=== PATIENT | female | born 1975 | race Caucasian/White ===

== ENCOUNTER 2017-03-17 15:52 | Emergency (ER) | payer MEDICAID, OTHER ==
[~2017-03-17] VITALS: Ht 157.5 cm; Wt 52.0 kg
[~2017-03-17 15:52] MED LIST: VALA100057 PO
[2017-03-17 15:56] VITALS: Ht 157.5 cm; Wt 52.0 kg
[2017-03-17] MEDS ORDERED: KETOROLAC 30 MG INJ IM STA (16:36)
[2017-03-17] MEDS ORDERED: DIAZEPAM 5 MG TAB PO ONE (17:00)
[2017-03-17 17:22] LABS: ADD UMIC YES; UR ASCORBIC ACID NEGATIVE (NEGATIVE); UR BACTERIA FEW /HPF (NONE SEEN); UR BILIRUBIN (Dip) NEGATIVE (NEGATIVE); UR BLOOD (Dip) 2+ mg/dL (NEGATIVE); UR CLARITY CLOUDY (CLEAR); UR COLOR YELLOW (YELLOW); UR GLUCOSE (Dip) NEGATIVE (NEGATIVE); UR KETONES (Dip) 2+ mg/dL (NEGATIVE); UR LEUKOCYTE ESTERASE (Dip) NEGATIVE Leu/ul (NEGATIVE); UR MUCUS FEW /HPF (NONE SEEN); UR NITRITE (Dip) NEGATIVE (NEGATIVE); UR RBC 9 /HPF (0-5); UR SQUAMOUS EPITHELIAL CELL FEW /HPF (FEW); UR TOTAL PROTEIN (Dip) NEGATIVE (NEGATIVE); UR UROBILINOGEN (Dip) NEGATIVE (NEGATIVE)
--- NOTE | 2017-03-17 17:25 | ERD ---
ER Documentation Chief Complaint Date/Time DATE: 03/17/17 TIME: 17:20 Chief Complaint MENSTRUAL CRAMS WITH VOMITING HPI This 42-year-old female presents to emergency department today for evaluation of dysmenorrhea, with vomiting, dysuria. Patient reports dark menses, started 5 days ago. Patient reports that she has painful menstruation always on the left side. Patient denies possibility of reports tubal ligation. Denies diarrhea, denies localized abdominal pain and epigastric, upper, or right lower quadrant. ROS All systems reviewed and are negative except as per history of present illness. Medications Home Meds Active Scripts Valacyclovir Hcl* (Valtrex*) 1,000 Mg Tablet, 2000 MG PO BID for 2 Days, TAB this is to be used at first sign of outbreak in the future. Do not use in the period you are breast feeding Prov:CUBA MEJIAS PA-C 03/08/15 Allergies Allergies: Coded Allergies: No Known Allergy (Verified , 08/08/14) PMhx/Soc History of Surgery: Yes () Anesthesia Reaction: No Hx Neurological Disorder: No Hx Respiratory Disorders: No Hx Cardiac Disorders: No Hx Psychiatric Problems: No Hx Miscellaneous Medical Probl: No Hx Alcohol Use: No Hx Substance Use: No Hx Tobacco Use: No Smoking Status: Never smoker Physical Exam Vitals Vital Signs Date Time Temp Pulse Resp B/P Pulse Ox O2 Delivery O2 Flow Rate FiO2 03/17/17 15:56 98.3 66 18 126/77 100 Vitals stable, triage notes reviewed Physical Exam Const: Well-appearing, well-hydrated, in no acute distress in obvious discomfort Head: Atraumatic Eyes: Normal Conjunctiva, PERRLA, EOMI ENT: Normal External Ears, Nose and Mouth, mucous membranes moist. Neck: Resp: Respirations even and unlabored, no respiratory distress Cardio: Abd: Abdomen soft, no epigastric tenderness, negative Alamo sign, no McBurney's point tenderness, no CVA tenderness, patient has reproducible pelvic and bladder tenderness Skin: Back: No midline or flank tenderness Ext: Neur: Awake and alert Psych: Normal Mood and Affect Results 24 hrs Laboratory Tests Test 03/17/17 16:47 Urine Color YELLOW Urine Clarity CLOUDY Urine pH 8.0 Urine Specific [place] 1.020 Urine Ketones 2+mg/dL Urine Nitrite NEGATIVEmg/dL Urine Bilirubin NEGATIVEmg/dL Urine Urobilinogen NEGATIVEmg/dL Urine Leukocyte Esterase NEGATIVELeu/ul Urine Microscopic RBC 9/HPF Urine Microscopic WBC 2/HPF Urine Squamous Epithelial Cells FEW/HPF Urine Bacteria FEW/HPF Urine Mucus FEW/HPF Urine Hemoglobin 2+mg/dL Urine Glucose NEGATIVEmg/dL Urine Total Protein NEGATIVEmg/dl Current Medications Medications (Trade) Dose Ordered Sig/Jelly Route PRN Reason Start Time Stop Time Status Last Admin Dose Admin Ketorolac Tromethamine (Toradol) 30 mg ONCE STAT IM 03/17/17 16:36 03/17/17 16:39 DC 03/17/17 16:51 Diazepam (Valium) 5 mg ONCE ONCE PO 03/17/17 17:00 03/17/17 17:18 DC 03/17/17 16:50 Procedures/MDM PROCEDURE: US Pelvis. CLINICAL INDICATION: Left pelvic pain TECHNIQUE: Multiple sonographic images of the pelvis were obtained utilizing a transabdominal and endovaginal technique. The images were reviewed on a PACS workstation. COMPARISON: 11/11/2012 FINDINGS: The uterus is visualized and measures 9.6 x 5.1 x 4.9 cm in size. The uterus is heterogeneous in echogenicity. A small hypoechoic structure in the uterus is seen measuring 1.3 x 0.7 x 1.1 cm in size. The endometrial echo complex is normal and measures 3.6 mm. There is no evidence for free fluid. The right ovary is not well visualized. A simple left ovarian cyst is seen measuring 2.8 x 2 x 2.7 cm in size and may represent a dominant follicle. The remainder of the left ovary has a normal echotexture and measures 3.6 x 2.3 x 3.5 cm. No adnexal masses are noted. IMPRESSION: 1. Left ovarian simple cyst which may represent a dominant follicle. 2. Heterogeneous uterus with a probable small leiomyoma. Electronically viewed and signed by Physician Enzo on 03/17/2017 17 :36 This 42-year-old female presents to emergency department today for evaluation of abdominal pain heavy menstruation with dark menses. Symptoms 5 days. is not suspected status post tubal ligation with her last childbirth. Little suspicion for ectopic , ovarian torsion, pelvic inflammatory disease, or appendicitis. Patient's history suggest a ovarian cyst or uterine fibroids, patient receives Toradol intramuscularly for pain, ultrasound findings as follows: Left ovarian simple cysts which may represent a dominant follicle, heterogeneous uterus with a probable small leiomyoma. Patient will be discharged with Naprosyn 500 mg 1 tab p.o. twice daily 10 days as needed, [place] count of 5 for pain greater than 6/10 on pain scale. Patient to follow- up with gynecology for well woman evaluation and treatment of ovarian cyst and uterine fibroid. I feel the patient is stable for discharge at this time. I have discussed results, examination findings, the treatment plan with the patient and family present prior to discharge. Indications for emergent reevaluation, side effects of medication were also discussed. All questions were answered. Patient verbalizes understanding and agrees with plan of care. Departure Diagnosis: Primary Impression: Ovarian cyst Laterality: left Qualified Code: N83.202 - Cyst of left ovary Additional Impression: Uterine fibroid Uterine leiomyoma location: unspecified location Qualified Code: D25.9 - Uterine leiomyoma, unspecified location Condition: Good Patient Instructions: Ovarian Cyst, Uterine Fibroids Referrals: [facility] REFERRAL LIST Additional Instructions: Thank you for for coming to [facility] for your care today. Please ask your nurse or provider if you have questions about your care today and do not leave until all your questions have been answered. Please use any medications given as directed and follow-up with your doctor (or the doctor you were referred to) in the next 2-3 days. If you do not have a primary care doctor you may follow up at the [facility] [place] (listed below). You may also use motrin and tylenol as needed for fever and/or pain unless instructed otherwise by your provider or nurse. Indications for more urgent follow-up have been discussed, but you may return to the Emergency Department at ANY time for any worrisome or worsening symptoms. If you have abdominal pain, please know that no test or exam you received is perfect and you should follow up within 8 hours for continued pain. If you had any imaging studies today, such as an X-Ray or CT Scan, these studies will be reviewed later by a radiologist. You will be called if there are important findings that were not identified today, so make sure the contact information you provided at registration is correct. If you received any narcotic pain control medicine today, such as Vicodin, Morphine or Dilaudid, your coordination and judgment may be affected for a number of hours. Please do not drive or operate heavy machinery, and you may want someone to assist you at home. If you were given a prescription for narcotic medication, be aware that it is very addictive- use sparingly and only if necessary. ALTHEA PAZ Mar 17, 2017 17:25
--- NOTE | 2017-03-17 17:36 | RADRPT ---
PROCEDURE: US Pelvis. CLINICAL INDICATION: Left pelvic pain TECHNIQUE: Multiple sonographic images of the pelvis were obtained utilizing a transabdominal and endovaginal technique. The images were reviewed on a PACS workstation. COMPARISON: 11/11/2012 FINDINGS: The uterus is visualized and measures 9.6 x 5.1 x 4.9 cm in size. The uterus is heterogeneous in ech ogenicity. A small hypoechoic structure in the uterus is seen measuring 1.3 x 0.7 x 1.1 cm in size. The endometrial echo complex is normal and measures 3.6 mm. There is no evidence for free fluid. Th e right ovary is not well visualized. A simple left ovarian cyst is seen measuring 2.8 x 2 x 2.7 cm in size and may represent a dominant follicle. The remainder of the left ovary has a normal echotex ture and measures 3.6 x 2.3 x 3.5 cm. No adnexal masses are noted. IMPRESSION: 1. Left ovarian simple cyst which may represent a dominant follicle. 2. Heterogeneous uterus with a probable small leiomyoma. RPTAT: HPNM Physician Enzo Date Time Electronically viewed and signed by Physician Enzo on 03/17/2017 17:36 /
[2017-03-17] MEDS ORDERED: NAPR-260 PO (17:53)
[2017-03-17] MEDS ORDERED: HYDR-906 PO (17:54)
[2017-03-17 18:14] VITALS: BP 107/64; PULSE 63; RESP 16; TEMP 98.3
== END 2017-03-17 18:15 | disposition home or self-care (01) ==
LOC: FTE 15:52
DX: N83.202 Unspecified ovarian cyst, left side (principal); D25.9 Leiomyoma of uterus, unspecified; R10.2 Pelvic and perineal pain
CPT/HCPCS: 76830; 76856; 81001; 96372; J1885; Z7502; Z7610

== ENCOUNTER 2017-04-30 11:22 | Emergency (ER) | payer OTHER ==
[~2017-04-30] VITALS: Ht 152.4 cm; Wt 52.5 kg
[~2017-04-30 11:22] MED LIST changes: +HYDR-906 PO; +NAPR-260 PO
[2017-04-30 11:32] VITALS: Ht 152.4 cm; Wt 52.5 kg
[2017-04-30] MEDS ORDERED: ONDANSETRON 4 MG INJ IV STA (12:20)
[2017-04-30] MEDS ORDERED: MECLIZINE 12.5 MG TAB PO ONE (12:30)
[2017-04-30] MEDS ORDERED: SOD CHLORIDE 0.9% 500 ML IV ONE (12:30)
[2017-04-30 13:05] LABS: BASOPHILS % 0.4 % (0.0-2.0); EOSINOPHILS # 0.1 10^3/ul (0.0-0.5); EOSINOPHILS % 0.7 % (0.0-7.0); HEMATOCRIT 37.8 % (37.0-47.0); HEMOGLOBIN 12.3 g/dl (12.0-16.0); LYMPHOCYTES # 1.9 10^3/ul (0.8-2.9); LYMPHOCYTES % 24.6 % (15.0-51.0); MEAN CORPUSCULAR HEMOGLOBIN 28.2 pg (29.0-33.0); MEAN CORPUSCULAR HGB CONC 32.5 g/dl (32.0-37.0); MEAN CORPUSCULAR VOLUME 86.7 fl (82.0-101.0); MEAN PLATELET VOLUME 12.1 fl (7.4-10.4); MONOCYTE # 0.4 10^3/ul (0.3-0.9); MONOCYTES % 5.7 % (0.0-11.0); NEUTROPHILS % 68.3 % (39.0-77.0); PLATELET COUNT 260 10^3/UL (140-415); RED BLOOD COUNT 4.36 10^6/ul (4.20-5.40); RED CELL DISTRIBUTION WIDTH 12.7 % (11.5-14.5); WHITE BLOOD COUNT 7.5 10^3/ul (4.8-10.8)
[2017-04-30 13:15] LABS: UR BACTERIA FEW /HPF (NONE SEEN); UR MUCUS FEW /HPF (NONE SEEN); UR RBC 6 /HPF (0-5); UR SQUAMOUS EPITHELIAL CELL MANY /HPF (FEW)
[2017-04-30 13:18] LABS: ADD UMIC YES; UR ASCORBIC ACID NEGATIVE (NEGATIVE); UR BILIRUBIN (Dip) NEGATIVE (NEGATIVE); UR BLOOD (Dip) 2+ mg/dL (NEGATIVE); UR CLARITY CLOUDY (CLEAR); UR COLOR YELLOW (YELLOW); UR GLUCOSE (Dip) NEGATIVE (NEGATIVE); UR KETONES (Dip) NEGATIVE (NEGATIVE); UR LEUKOCYTE ESTERASE (Dip) NEGATIVE Leu/ul (NEGATIVE); UR NITRITE (Dip) NEGATIVE (NEGATIVE); UR SPECIFIC GRAVITY (Dip) 1.024 (1.003-1.030); UR TOTAL PROTEIN (Dip) NEGATIVE (NEGATIVE); UR UROBILINOGEN (Dip) NEGATIVE (NEGATIVE)
[2017-04-30 13:22] LABS: CALCIUM 9.7 mg/dl (8.4-10.2); CREATININE 0.61 mg/dl (0.44-1.00); POTASSIUM 4.1 mmol/L (3.5-5.1)
[2017-04-30] MEDS ORDERED: ONDA4TAB11 PO (16:20)
[2017-04-30] MEDS ORDERED: CIPR500T4 PO (16:20)
[2017-04-30 16:36] VITALS: BP 105/66; PULSE 68; RESP 16; TEMP 98.8
--- NOTE | 2017-05-09 19:41 | ERD ---
ER Documentation Chief Complaint Date/Time DATE: 05/09/17 TIME: 19:36 Chief Complaint pt bib self c/o dizziness since taking norco for ovarian cyst HPI This 42 yo female has had intermittent lightheadedness and occasional suprapubic pain. Mild pain on urination for 3 days. ROS All systems reviewed and are negative except as per history of present illness. Medications Home Meds Active Scripts Ondansetron (Zofran Odt) 4 Mg Tab.rapdis, 4 MG PO Q6, #10 Prov:GREENLEODAN DO 04/30/17 Ciprofloxacin Hcl* (Ciprofloxacin Hcl*) 500 Mg Tablet, 500 MG PO BID for 3 Days , TAB Prov:GREENMAKLEODAN DO 04/30/17 Hydrocodone/Acetaminophen (Oden 5-325 Tablet) 1 Each Tablet, 1 TAB PO Q6H Y for PAIN for 3 Days, #7 TAB Prov:JACKSON,ALTHEA 03/17/17 Naproxen* (Naprosyn*) 500 Mg Tablet, 500 MG PO BID Y for PAIN AND/OR INFLAMMATION for 10 Days, #20 TAB Prov:JACKSON,ALTHEA 03/17/17 Valacyclovir Hcl* (Valtrex*) 1,000 Mg Tablet, 2000 MG PO BID for 2 Days, TAB this is to be used at first sign of outbreak in the future. Do not use in the period you are breast feeding Prov:CUBA MEJIAS PA-C 03/08/15 Allergies Allergies: Coded Allergies: No Known Allergy (Verified , 08/08/14) PMhx/Soc Medical and Surgical Hx: pt denies Medical Hx History of Surgery: Yes () Anesthesia Reaction: No Hx Neurological Disorder: No Hx Respiratory Disorders: No Hx Cardiac Disorders: No Hx Psychiatric Problems: No Hx Miscellaneous Medical Probl: No Hx Alcohol Use: No Hx Substance Use: No Hx Tobacco Use: No Smoking Status: Never smoker Physical Exam Physical Exam Const: [] No distress. Head: Atraumatic Eyes: Normal Conjunctiva ENT: Normal External Ears, Nose and Mouth. Neck: Full range of motion..~ No meningismus. Resp: Clear to auscultation bilaterally Cardio: Regular rate and rhythm, no murmurs Abd: Soft, non tender, non distended. Normal bowel sounds Skin: No petechiae or rashes Back: No midline or flank tenderness Ext: No cyanosis, or edema Neur: Awake and alert Psych: Normal Mood and Affect Results 24 hrs Laboratory Tests Test 04/30/17 12:35 04/30/17 12:55 Urine Color YELLOW Urine Clarity CLOUDY Urine pH 5.0 Urine Specific [place] 1.024 Urine Ketones NEGATIVEmg/dL Urine Nitrite NEGATIVEmg/dL Urine Bilirubin NEGATIVEmg/dL Urine Urobilinogen NEGATIVEmg/dL Urine Leukocyte Esterase NEGATIVELeu/ul Urine Microscopic RBC 6/HPF Urine Microscopic WBC 2/HPF Urine Squamous Epithelial Cells MANY/HPF Urine Bacteria FEW/HPF Urine Mucus FEW/HPF Urine Hemoglobin 2+mg/dL Urine Glucose NEGATIVEmg/dL Urine Total Protein NEGATIVEmg/dl White Blood Count 7.510^3/ul Red Blood Count 4.3610^6/ul Hemoglobin 12.3g/dl Hematocrit 37.8% Mean Corpuscular Volume 86.7fl Mean Corpuscular Hemoglobin 28.2pg Mean Corpuscular Hemoglobin Concent 32.5g/dl Red Cell Distribution Width 12.7% Platelet Count 63894^3/UL Mean Platelet Volume 12.1fl Neutrophils % 68.3% Lymphocytes % 24.6% Monocytes % 5.7% Eosinophils % 0.7% Basophils % 0.4% Nucleated Red Blood Cells % 0.0/100WBC Neutrophils # (Manual) 5.210^3/ul Lymphocytes # 1.910^3/ul Monocytes # 0.410^3/ul Eosinophils # 0.110^3/ul Basophils # 0.010^3/ul Nucleated Red Blood Cells # 0.010^3/ul Sodium Level 141mmol/L Potassium Level 4.1mmol/L Chloride Level 105mmol/L Carbon Dioxide Level 25mmol/L Anion Gap 15 Blood Urea Nitrogen 14mg/dl Creatinine 0.61mg/dl Glucose Level 91mg/dl Calcium Level 9.7mg/dl Current Medications Medications (Trade) Dose Ordered Sig/Jelly Route PRN Reason Start Time Stop Time Status Last Admin Dose Admin Ondansetron HCl 4 mg 4 mg ONCE STAT IV 04/30/17 12:20 04/30/17 12:23 DC 04/30/17 12:55 Sodium Chloride (NS) 500 ml @ 500 mls/hr Q1H ONCE IV 04/30/17 12:30 04/30/17 13:29 DC 04/30/17 12:54 Meclizine HCl (Antivert) 25 mg ONCE ONCE PO 04/30/17 12:30 04/30/17 12:31 DC 04/30/17 12:54 Procedures/MDM Lightheadedness secondary to UTI. Was given normal saline hydration and IV zofran leading to improved conditions. No pain in ER. Dischargin with PCP F/U in stable condition with po antibiotics. Departure Diagnosis: Primary Impression: UTI (urinary tract infection) Additional Impression: Lightheadedness Condition: Stable Patient Instructions: Understanding Urinary Tract Infections (UTIs) Referrals: MERCEDEZ LARKIN Additional Instructions: Llame al doctor MAANA y haley duran EDSON PARA DENTRO DE 2-3 DANG.Dgale a la secretaria que nosotros le instruimos hacer esta edson.Avise o llame si roberts condicin se empeora antes de la edson. Regresa aqui si peor o no mejor. LEODAN BORGES DO May 09, 2017 19:41
== END 2017-04-30 16:35 | disposition home or self-care (01) ==
LOC: FTE 11:22
DX: N39.0 Urinary tract infection, site not specified (principal)
CPT/HCPCS: 36415; 80048; 81001; 85025; 96374; J2405; J7040; Z7502; Z7610